=== PATIENT | female | born 1995 | race Caucasian/White ===

== ENCOUNTER 2024-10-13 22:55 | Emergency (ER) | payer OTHER, SELFPAY ==
[2024-10-13 23:07] VITALS: BP 121/83
--- NOTE | 2024-10-14 01:11 | ED.SKININJ ---
HPI-Injury
General
Chief Complaint: Bite
Source: patient
Exam Limitations: none
Time Seen by Provider: 10/14/24 01:05
History of Present Illness-Injury
Initial Injury comments:
29-year-old female who presents after she was bit by her cat yesterday. The patient states that she did put some 'iodine stuff' on her hand. She also states she may have an antibiotic her mom had unsure what was patient's last fever but did notice
a little bit of redness. She then read that cat bites can get infected. No fevers or numbness or tingling.
Past History
Past History
ED Past Medical History: None
Phy Exam
Physical Exam
Physical Exam:
CONSTITUTIONAL Vital signs reviewed, Patient alert and oriented to person, place and time. Well-appearing
HEAD atraumatic, normocephalic.
EYES eyelids normal to inspection, Extraocular muscles intact, Conjunctiva normal, Sclera normal.
NECK normal range of motion, Trachea midline, no jugular venous distention.
RESP no respiratory distress
BACK No obvious deformities
UPPER EXTREMITY Gross Range of motion normal, gross motor strength normal. Left dorsal hand with 2 puncture bites on the radial aspect of the dorsal hand. There is minor surrounding redness but no lymphangitic spread or proximal spread. Normal
distal cap refill
LOWER EXTREMITY Gross range of motion normal, Gross motor strength normal
NEURO Speech normal, No focal motor deficits include, [place] coma scale 15, Memory normal, Cranial Nerves intact to screening exam.
SKIN Skin warm, dry, and normal in color.
PSYCHIATRIC Patient oriented to person place and time, Normal affect.
Course
Vital Signs
Initial and Last Documented VS:
Initial Vital Signs
Temp Pulse Resp BP Pulse Ox
98.3 F 74 14 121/83 100
10/13/24 23:07 10/13/24 23:07 10/13/24 23:07 10/13/24 23:07 10/13/24 23:07
Last Documented Vital Signs
Temp Pulse Resp BP Pulse Ox
98.3 F 74 14 121/83 100
10/13/24 23:07 10/13/24 23:07 10/13/24 23:07 10/13/24 23:07 10/13/24 23:07
MDM/Problems Addressed
MDM/Problems Addressed:
Cat bite, cellulitis
*Pulse Oximetry
Patient hypoxic: no
*Critical Care Note
Total Time (30-74mins, 75-104mins- exclusive of procedures): Not Applicable
Data Reviewed
Source: patient
Further Testing Considered But Not Given:
Consider labs but redness is limited to the surrounding area.
Patient Management
Escalation/DeEscalation of care consider admission/obs:
Recommended warm compresses and antibiotics. She will watch closely for any spread of redness or progression.
ED Attending Note
-
Portions of this chart may have been created with voice recognition software.� Occasional wrong word or��sound alike� substitutions may have occurred due to the inherent limitations of voice recognition software.
Discharge Plan
Departure
Patient Disposition: Home (Routine Discharge)
Date of Disposition: 10/14/24
Time of Disposition: 01:13
Patient with high blood pressure during this ER visit?: No
Discharge Problem:
Cat bite, Cellulitis
Instructions: Animal Bites (DC), Cellulitis (Skin Infection), Child (DC), Wound Care (DC)
Prescriptions:
New
amoxicillin-pot clavulanate 875-125 mg tablet
1 tab PO BID Qty: 14 0RF
Referrals:
Neil Haney MD [Family Provider] -
Activity Restrictions/Additional Instructions:
Return immediately for increased redness, drainage from the wound, fevers or any other concerns. Please have your doctor reevaluate your wound in the next 48 hours. Apply warm compresses and keep wound clean and dry
Interventions
Interventions:
*Risk Screen - Suicide Last Done: 10/13/24 23:07
ED- Fall Risk Assessment Last Done: 10/14/24 00:57
ED-Skin Assessment Last Done: 10/14/24 00:57
Discharge Date and Time
Print Language: GREEK
[2024-10-14] MEDS: AUGMENTIN 875 MG/125 MG 1 TABLET PO (01:18)
--- NOTE | 2024-10-14 01:20 | ED.SKININJ ---
HPI-Injury
General
Chief Complaint: Bite
Time Seen by Provider: 10/14/24 01:05
Past History
Past History
ED Past Medical History: None
Course
Orders/Labs/Results
Orders:
Orders
10/14/24 01:11
Amoxicillin 875 mg/Clav 125 mg [Augmentin 875 mg/125 mg] 1 tablet PO NOW STA
Vital Signs
Initial and Last Documented VS:
Initial Vital Signs
Temp Pulse Resp BP Pulse Ox
98.3 F 74 14 121/83 100
10/13/24 23:07 10/13/24 23:07 10/13/24 23:07 10/13/24 23:07 10/13/24 23:07
Last Documented Vital Signs
Temp Pulse Resp BP Pulse Ox
98.3 F 74 14 121/83 100
10/13/24 23:07 10/13/24 23:07 10/13/24 23:07 10/13/24 23:07 10/13/24 23:07
ED Attending Note
-
Portions of this chart may have been created with voice recognition software.� Occasional wrong word or��sound alike� substitutions may have occurred due to the inherent limitations of voice recognition software.
Discharge Plan
Departure
Patient Disposition: Home (Routine Discharge)
Date of Disposition: 10/14/24
Time of Disposition: 01:13
Patient with high blood pressure during this ER visit?: No
Discharge Problem:
Cat bite, Cellulitis
Instructions: Animal Bites (DC), Cellulitis (Skin Infection), Child (DC), Wound Care (DC)
Prescriptions:
New
amoxicillin-pot clavulanate 875-125 mg tablet
1 tab PO BID Qty: 14 0RF
Referrals:
Neil Haney MD [Family Provider] -
Stand Alone Forms: Return to Work
Activity Restrictions/Additional Instructions:
Return immediately for increased redness, drainage from the wound, fevers or any other concerns. Please have your doctor reevaluate your wound in the next 48 hours. Apply warm compresses and keep wound clean and dry
Interventions
Interventions:
*Risk Screen - Suicide Last Done: 10/13/24 23:07
ED- Fall Risk Assessment Last Done: 10/14/24 00:57
ED-Skin Assessment Last Done: 10/14/24 00:57
Discharge Date and Time
Print Language: M[place]GR[place]
== END 2024-10-14 01:25 | disposition home or self-care (01) ==
LOC: EMR 22:55
PROVIDERS: EMERGENCY PHYSICIAN Emergency Medicine; FAMILY PHYSICIAN Internal Medicine
DX: L03.90 Cellulitis, unspecified (principal); S61.432A Puncture wound without foreign body of left hand, initial encounter; W55.01XA Bitten by cat, initial encounter
CPT/HCPCS: 99282